=== PATIENT | male | born 1955 | race Two or more races ===

== ENCOUNTER → 2018-01-22 06:21 | Outpatient (CLI) | payer OTHER | END | disposition home or self-care (01) | LOC: LAB 06:21 | DX: I10 Essential (primary) hypertension (principal); E11.9 Type 2 diabetes mellitus without complications; E03.9 Hypothyroidism, unspecified; E78.2 Mixed hyperlipidemia ==

== ENCOUNTER 2018-01-22 07:41 | Outpatient (CLI) | payer OTHER | END 2018-01-22 07:56 | disposition home or self-care (01) | LOC: RAD 07:41 | DX: R10.9 Unspecified abdominal pain (principal); J44.9 Chronic obstructive pulmonary disease, unspecified; M12.9 Arthropathy, unspecified; M46.48 Discitis, unspecified, sacral and sacrococcygeal region; M19.90 Unspecified osteoarthritis, unspecified site ==

== ENCOUNTER 2018-07-21 07:09 | Outpatient (CLI) | payer OTHER | END 2018-07-21 07:23 | disposition home or self-care (01) | LOC: LAB 07:09 | DX: I10 Essential (primary) hypertension (principal); E11.9 Type 2 diabetes mellitus without complications; E03.8 Other specified hypothyroidism; E78.2 Mixed hyperlipidemia ==

== ENCOUNTER 2018-10-15 10:06 | Emergency (ER) | payer OTHER ==
[~2018-10-15] VITALS: Ht 170.2 cm; Wt 90.7 kg
[2018-10-15] MEDS ORDERED: COZAAR50 MG PO (10:45)
[2018-10-15] MEDS ORDERED: ASPIRIN81 MG PO (10:45)
[2018-10-15] MEDS ORDERED: PROTONIX40 MG PO (13:02)
== END 2018-10-15 14:45 | disposition home or self-care (01) ==
LOC: ER 10:06
DX: K29.70 Gastritis, unspecified, without bleeding (principal)

== ENCOUNTER → 2018-11-04 | Outpatient (CLI) | payer OTHER ==
[~2018-11-04] MED LIST: ASPIRIN81 MG PO; COZAAR50 MG PO; PROTONIX40 MG PO
== END | disposition home or self-care (01) ==
LOC: LAB 08:20
DX: I10 Essential (primary) hypertension (principal); E11.9 Type 2 diabetes mellitus without complications; E03.8 Other specified hypothyroidism; N40.0 Benign prostatic hyperplasia without lower urinary tract symptoms; M81.0 Age-related osteoporosis without current pathological fracture; E78.2 Mixed hyperlipidemia

== ENCOUNTER 2018-11-17 16:12 | Outpatient (CLI) | payer OTHER | END 2018-11-17 16:31 | disposition home or self-care (01) | LOC: LAB 16:12 | DX: B18.2 Chronic viral hepatitis C (principal) ==

== ENCOUNTER 2018-11-19 07:13 | Outpatient (CLI) | payer OTHER | END 2018-11-19 07:28 | disposition home or self-care (01) | LOC: SONOGRAMA 07:13 → EDBD 08:15 → MAMO-SONO 08:15 | DX: R10.9 Unspecified abdominal pain (principal) ==

== ENCOUNTER 2019-01-13 12:09 | Outpatient (CLI) | payer OTHER | END 2019-01-13 15:30 | disposition home or self-care (01) | LOC: LAB 12:09 | DX: B18.8 Other chronic viral hepatitis (principal) ==

== ENCOUNTER 2019-02-02 08:06 | Outpatient (CLI) | payer OTHER | END 2019-02-02 15:00 | disposition home or self-care (01) | LOC: LAB 08:06 | DX: E03.8 Other specified hypothyroidism (principal); E11.9 Type 2 diabetes mellitus without complications; E78.2 Mixed hyperlipidemia; I10 Essential (primary) hypertension ==

== ENCOUNTER 2019-05-04 08:34 | Outpatient (CLI) | payer OTHER | END 2019-05-04 08:40 | disposition home or self-care (01) | LOC: LAB 08:34 | DX: E03.8 Other specified hypothyroidism (principal); I10 Essential (primary) hypertension; E11.9 Type 2 diabetes mellitus without complications; E78.2 Mixed hyperlipidemia ==

== ENCOUNTER 2019-07-13 06:48 | Outpatient (CLI) | payer OTHER | END 2019-07-13 07:26 | disposition home or self-care (01) | LOC: LAB 06:48 | DX: R10.13 Epigastric pain (principal) ==

== ENCOUNTER 2019-08-03 07:25 | Outpatient (CLI) | payer OTHER | END 2019-08-03 07:47 | disposition home or self-care (01) | LOC: LAB 07:25 | DX: B18.2 Chronic viral hepatitis C (principal) ==

== ENCOUNTER 2019-08-31 07:33 | Outpatient (CLI) | payer OTHER | END 2019-08-31 15:00 | disposition home or self-care (01) | LOC: LAB 07:33 | DX: E03.8 Other specified hypothyroidism (principal); E11.9 Type 2 diabetes mellitus without complications; I10 Essential (primary) hypertension; E78.2 Mixed hyperlipidemia; B18.2 Chronic viral hepatitis C ==

== ENCOUNTER 2019-10-05 07:15 | Outpatient (CLI) | payer OTHER | END 2019-10-05 07:20 | disposition home or self-care (01) | LOC: LAB 07:15 | DX: B18.2 Chronic viral hepatitis C (principal) ==

== ENCOUNTER 2019-12-01 14:20 | Emergency (ER) | payer OTHER ==
[~2019-12-01] VITALS: Ht 167.6 cm; Wt 97.5 kg
[2019-12-01] MEDS ORDERED: PEPCID AC20 MG PO (14:32)
[2019-12-01] MEDS ORDERED: DICY20TA (14:32)
== END 2019-12-02 06:42 | disposition home or self-care (01) ==
LOC: ER 14:20
DX: K29.70 Gastritis, unspecified, without bleeding (principal); R10.13 Epigastric pain

== ENCOUNTER → 2020-01-20 08:07 | Outpatient (CLI) | payer OTHER ==
[~2020-01-20 08:07] MED LIST changes: +DICY20TA; +PEPCID AC20 MG PO
== END | disposition home or self-care (01) ==
LOC: LAB 08:07
DX: I10 Essential (primary) hypertension (principal); E11.9 Type 2 diabetes mellitus without complications; E03.8 Other specified hypothyroidism; E78.2 Mixed hyperlipidemia

== ENCOUNTER 2020-06-01 07:54 | Emergency (ER) | payer OTHER ==
[~2020-06-01] VITALS: Ht 167.6 cm; Wt 95.3 kg
== END 2020-06-01 15:43 | disposition home or self-care (01) ==
LOC: ER 07:54
DX: G45.9 Transient cerebral ischemic attack, unspecified (principal); R51 Headache; Z03.818 Encounter for observation for suspected exposure to other biological agents ruled out

== ENCOUNTER 2020-06-03 07:46 | Outpatient (CLI) | payer OTHER | END 2020-06-03 08:50 | disposition home or self-care (01) | LOC: LAB 07:46 | PROVIDERS: ATTEND Internal Medicine Cardiovascular Disease | DX: I10 Essential (primary) hypertension (principal); E11.9 Type 2 diabetes mellitus without complications; E03.8 Other specified hypothyroidism; E78.2 Mixed hyperlipidemia ==

== ENCOUNTER 2020-06-04 13:18 | Emergency (ER) | payer OTHER ==
[~2020-06-04] VITALS: Ht 170.2 cm; Wt 90.7 kg
== END 2020-06-04 18:32 | disposition home or self-care (01) ==
LOC: ER 13:18
DX: G44.89 Other headache syndrome (principal); Z03.818 Encounter for observation for suspected exposure to other biological agents ruled out

== ENCOUNTER 2020-06-07 10:25 | Emergency (ER) | payer OTHER ==
[~2020-06-07] VITALS: Ht 170.2 cm; Wt 90.7 kg
== END 2020-06-07 17:56 | disposition home or self-care (01) ==
LOC: ER 10:25
DX: B34.9 Viral infection, unspecified (principal); Z03.818 Encounter for observation for suspected exposure to other biological agents ruled out; R53.81 Other malaise

== ENCOUNTER 2020-06-09 08:56 | Outpatient (CLI) | payer OTHER | END 2020-06-09 09:08 | disposition home or self-care (01) | LOC: LAB 08:56 | PROVIDERS: ATTEND Radiology Diagnostic Radiology | DX: N20.0 Calculus of kidney (principal) ==

== ENCOUNTER 2020-06-09 10:23 | Outpatient (CLI) | payer OTHER | END 2020-06-09 10:38 | disposition home or self-care (01) | LOC: MRI 10:23 | PROVIDERS: ATTEND Internal Medicine Cardiovascular Disease | DX: I63.50 Cerebral infarction due to unspecified occlusion or stenosis of unspecified cerebral artery (principal); G45.8 Other transient cerebral ischemic attacks and related syndromes | CPT/HCPCS: 70552 ==

== ENCOUNTER 2020-06-12 10:08 | Inpatient (IN) | payer OTHER ==
[~2020-06-12] VITALS: Ht 170.2 cm; Wt 90.7 kg
== END 2020-07-16 12:19 | disposition home or self-care (01) | DRG 207 ==
LOC: ER 10:08 → MEDJ 15:43 → ICU 06-16 14:28 → MEDJ 07-03 10:23 → ICU 07-03 12:54 → MEDJ 07-03 22:59
PROVIDERS: ADMIT Internal Medicine Cardiovascular Disease; ATTEND Internal Medicine Cardiovascular Disease
PROC: CB2YYZZ Tomographic (Tomo) Nuclear Medicine Imaging of Respiratory System using Other Radionuclide (ICD-10-PCS; principal; 2020-06-12)
PROC: 3E0F7SF Introduction of Other Gas into Respiratory Tract, Via Natural or Artificial Opening (ICD-10-PCS; 2020-06-12)
PROC: 8E0ZXY6 Isolation (ICD-10-PCS; 2020-06-12)
PROC: 4A033R1 Measurement of Arterial Saturation, Peripheral, Percutaneous Approach (ICD-10-PCS; 2020-06-12)
PROC: 4A12X4Z Monitoring of Cardiac Electrical Activity, External Approach (ICD-10-PCS; 2020-06-12)
PROC: 02HV33Z Insertion of Infusion Device into Superior Vena Cava, Percutaneous Approach (ICD-10-PCS; 2020-06-15)
PROC: 5A1955Z Respiratory Ventilation, Greater than 96 Consecutive Hours (ICD-10-PCS; 2020-06-16)
PROC: 0BH17EZ Insertion of Endotracheal Airway into Trachea, Via Natural or Artificial Opening (ICD-10-PCS; 2020-06-16)
DX: U07.1 COVID-19 (principal); J12.89 Other viral pneumonia; J96.01 Acute respiratory failure with hypoxia; J15.1 Pneumonia due to Pseudomonas; R78.81 Bacteremia; I10 Essential (primary) hypertension; D75.1 Secondary polycythemia; R51 Headache; K29.60 Other gastritis without bleeding; B95.7 Other staphylococcus as the cause of diseases classified elsewhere; B95.2 Enterococcus as the cause of diseases classified elsewhere

== ENCOUNTER 2020-08-26 08:37 | Outpatient (CLI) | payer OTHER | END 2020-08-26 08:49 | disposition home or self-care (01) | LOC: LAB 08:37 | PROVIDERS: ATTEND Internal Medicine Cardiovascular Disease | DX: I10 Essential (primary) hypertension (principal); E11.9 Type 2 diabetes mellitus without complications; E03.8 Other specified hypothyroidism; E78.2 Mixed hyperlipidemia ==

== ENCOUNTER 2020-12-21 06:44 | Outpatient (CLI) | payer OTHER | END 2020-12-21 06:57 | disposition home or self-care (01) | LOC: LAB 06:44 | PROVIDERS: ATTEND Internal Medicine Cardiovascular Disease | DX: I10 Essential (primary) hypertension (principal); E11.9 Type 2 diabetes mellitus without complications; E03.8 Other specified hypothyroidism; E78.2 Mixed hyperlipidemia; N40.0 Benign prostatic hyperplasia without lower urinary tract symptoms; Z12.11 Encounter for screening for malignant neoplasm of colon ==

== ENCOUNTER → 2020-12-22 07:36 | Outpatient (CLI) | payer OTHER | END | disposition home or self-care (01) | LOC: LAB 07:36 | PROVIDERS: ATTEND Internal Medicine Cardiovascular Disease | DX: E03.8 Other specified hypothyroidism (principal); I10 Essential (primary) hypertension; E11.9 Type 2 diabetes mellitus without complications; E78.2 Mixed hyperlipidemia; N40.0 Benign prostatic hyperplasia without lower urinary tract symptoms; Z12.11 Encounter for screening for malignant neoplasm of colon ==

== ENCOUNTER → 2021-04-20 08:00 | Outpatient (CLI) | payer OTHER | END | disposition home or self-care (01) | LOC: LAB 08:00 | PROVIDERS: ATTEND Internal Medicine Cardiovascular Disease | DX: E03.8 Other specified hypothyroidism (principal); I10 Essential (primary) hypertension; E11.9 Type 2 diabetes mellitus without complications; E78.2 Mixed hyperlipidemia ==

== ENCOUNTER 2021-08-21 08:03 | Outpatient (CLI) | payer OTHER | END 2021-08-21 08:40 | disposition home or self-care (01) | LOC: LAB 08:03 | PROVIDERS: ATTEND Internal Medicine Cardiovascular Disease | DX: E03.8 Other specified hypothyroidism (principal); I10 Essential (primary) hypertension; E11.9 Type 2 diabetes mellitus without complications; E78.2 Mixed hyperlipidemia ==

== ENCOUNTER 2021-12-19 07:06 | Outpatient (CLI) | payer OTHER | END 2021-12-19 07:22 | disposition home or self-care (01) | LOC: LAB 07:06 | PROVIDERS: ATTEND Internal Medicine Cardiovascular Disease | DX: I11.9 Hypertensive heart disease without heart failure (principal); E03.9 Hypothyroidism, unspecified; E78.2 Mixed hyperlipidemia; Z12.11 Encounter for screening for malignant neoplasm of colon; E55.9 Vitamin D deficiency, unspecified; N40.0 Benign prostatic hyperplasia without lower urinary tract symptoms ==

== ENCOUNTER 2022-01-16 09:45 | Outpatient (CLI) | payer OTHER | END 2022-01-16 10:05 | disposition home or self-care (01) | LOC: RAD 09:45 | PROVIDERS: ATTEND Internal Medicine Cardiovascular Disease | DX: M19.90 Unspecified osteoarthritis, unspecified site (principal); M46.48 Discitis, unspecified, sacral and sacrococcygeal region ==

== ENCOUNTER 2022-01-23 07:04 | Outpatient (CLI) | payer OTHER | END 2022-01-23 07:14 | disposition home or self-care (01) | LOC: SONOGRAMA 07:04 | PROVIDERS: ATTEND Internal Medicine Cardiovascular Disease | DX: R10.9 Unspecified abdominal pain (principal) ==

== ENCOUNTER 2022-05-04 07:11 | Outpatient (CLI) | payer OTHER ==
[~2022-05-04 07:11] MED LIST changes: +ETODOLAC400 MG PO; +NORFLEX100MG PO
== END 2022-05-04 13:02 | disposition home or self-care (01) ==
LOC: LAB 07:11
PROVIDERS: ATTEND Internal Medicine Cardiovascular Disease
DX: I10 Essential (primary) hypertension (principal); E11.9 Type 2 diabetes mellitus without complications; E03.9 Hypothyroidism, unspecified

== ENCOUNTER 2022-09-03 12:55 | Outpatient (CLI) | payer OTHER | END 2022-09-03 13:08 | disposition home or self-care (01) | LOC: MRI 12:55 | PROVIDERS: ATTEND Physical Medicine & Rehabilitation | DX: M54.51 Vertebrogenic low back pain (principal); M51.37 Other intervertebral disc degeneration, lumbosacral region | CPT/HCPCS: 72148 ==

== ENCOUNTER 2022-09-17 11:01 | Outpatient (CLI) | payer OTHER | END 2022-09-17 11:12 | disposition home or self-care (01) | LOC: RAD 11:01 | PROVIDERS: ATTEND Internal Medicine Cardiovascular Disease | DX: M12.9 Arthropathy, unspecified (principal) ==

== ENCOUNTER → 2022-09-25 07:51 | Outpatient (CLI) | payer OTHER | END | disposition home or self-care (01) | LOC: LAB 07:51 | PROVIDERS: ATTEND Internal Medicine Cardiovascular Disease | DX: I10 Essential (primary) hypertension (principal); E78.2 Mixed hyperlipidemia ==

== ENCOUNTER 2022-09-25 08:44 | Outpatient (CLI) | payer OTHER | END 2022-09-25 09:05 | disposition home or self-care (01) | LOC: SONOGRAMA 08:44 | PROVIDERS: ATTEND Internal Medicine Cardiovascular Disease | DX: M12.9 Arthropathy, unspecified (principal) ==

== ENCOUNTER → 2023-01-03 07:08 | Outpatient (CLI) | payer OTHER | END | disposition home or self-care (01) | LOC: LAB 07:08 | PROVIDERS: ATTEND Internal Medicine Cardiovascular Disease | DX: E03.9 Hypothyroidism, unspecified (principal); E11.9 Type 2 diabetes mellitus without complications; I10 Essential (primary) hypertension; E78.2 Mixed hyperlipidemia; N40.0 Benign prostatic hyperplasia without lower urinary tract symptoms; Z12.11 Encounter for screening for malignant neoplasm of colon; E55.9 Vitamin D deficiency, unspecified ==

== ENCOUNTER → 2023-01-07 07:39 | Outpatient (CLI) | payer OTHER | END | disposition home or self-care (01) | LOC: LAB 07:39 | PROVIDERS: ATTEND Internal Medicine Cardiovascular Disease | DX: I10 Essential (primary) hypertension (principal); E11.9 Type 2 diabetes mellitus without complications; E03.9 Hypothyroidism, unspecified; E78.2 Mixed hyperlipidemia; N40.0 Benign prostatic hyperplasia without lower urinary tract symptoms; Z12.11 Encounter for screening for malignant neoplasm of colon; E55.9 Vitamin D deficiency, unspecified ==

== ENCOUNTER 2023-05-24 08:42 | Outpatient (CLI) | payer OTHER | END 2023-05-24 08:50 | disposition home or self-care (01) | LOC: MRI 08:42 | PROVIDERS: ATTEND Internal Medicine Cardiovascular Disease | DX: M46.49 Discitis, unspecified, multiple sites in spine (principal) | CPT/HCPCS: 72148 ==

== ENCOUNTER 2023-06-21 07:52 | Outpatient (CLI) | payer OTHER | END 2023-06-21 07:57 | disposition home or self-care (01) | LOC: LAB 07:52 | PROVIDERS: ATTEND Internal Medicine Cardiovascular Disease | DX: I10 Essential (primary) hypertension (principal); E11.9 Type 2 diabetes mellitus without complications; E03.9 Hypothyroidism, unspecified; E78.2 Mixed hyperlipidemia; Z91.041 Radiographic dye allergy status ==

== ENCOUNTER 2023-07-10 10:55 | Outpatient (CLI) | payer OTHER | END 2023-07-10 10:56 | disposition home or self-care (01) | LOC: LAB 10:55 | PROVIDERS: ATTEND Internal Medicine Cardiovascular Disease | DX: E11.9 Type 2 diabetes mellitus without complications (principal); N40.0 Benign prostatic hyperplasia without lower urinary tract symptoms; Z12.11 Encounter for screening for malignant neoplasm of colon; Z91.041 Radiographic dye allergy status ==

== ENCOUNTER → 2023-07-11 11:22 | Outpatient (CLI) | payer OTHER | END | disposition home or self-care (01) | LOC: LAB 11:22 | PROVIDERS: ATTEND Internal Medicine Cardiovascular Disease | DX: N40.1 Benign prostatic hyperplasia with lower urinary tract symptoms (principal); E11.9 Type 2 diabetes mellitus without complications; Z12.11 Encounter for screening for malignant neoplasm of colon ==

== ENCOUNTER → 2023-11-04 09:14 | Outpatient (CLI) | payer OTHER ==
[2023-11-04 10:02] LABS: HEMATOCRIT 45.8 % (39.0-48.0); HEMOGLOBIN 15.4 g/dL (13-16.00); MEAN CELL VOLUME 82.5 fL (80.0-100.00); MEAN CORPUSCULAR HEMOGLOBIN 27.8 pg (27.00-32.0); MEAN CORPUSCULAR HGB CONC 33.7 g/dl (32.0-36.0); PLATELET COUNT 155 K/uL (150-450); RED BLOOD COUNT 5.56 M/uL (4.00-6.00); RED CELL DISTRIBUTION WIDTH 14.7 % (11.5-14.5)
[2023-11-04 10:46] LABS: BILIRUBIN TOTAL 0.66 mg/dL (0.3-1.2); CALCIUM 8.8 mg/dL (8.5-10.1); CHOL HDL RATIO 4.7 (0-5.0); CREATININE SERUM 1.35 mg/dL (0.70-1.30); GFR 52.4; GLOBULINA 3.4 G/DL (2.4-3.5); POTASSIUM 4.51 mEq/L (3.5-5.1); T4 TOTAL 7.8 UG/DL (4.5-12.1); TOTAL PROTEIN 7.4 gm/dL (6.4-8.2); TSH 1.15 uIU/mL (0.358-3.74)
[2023-11-04 11:42] LABS: T3 TOTAL 1.14 ng/ml (0.846-2.02); VITAMIN D3 25 HYDROXY 37.09 ng/ml (30-120)
== END | disposition home or self-care (01) ==
LOC: LAB 09:14
PROVIDERS: ATTEND Internal Medicine Cardiovascular Disease
DX: I10 Essential (primary) hypertension (principal); E78.2 Mixed hyperlipidemia; E03.9 Hypothyroidism, unspecified; E55.9 Vitamin D deficiency, unspecified; E11.9 Type 2 diabetes mellitus without complications

== ENCOUNTER 2024-06-16 07:32 | Outpatient (CLI) | payer OTHER ==
[~2024-06-16 07:32] MED LIST changes: +ZESTRIL2.5 MG
[2024-06-16 08:16] LABS: HEMATOCRIT 42.7 % (39.0-48.0); HEMOGLOBIN 14.5 g/dL (13-16.00); MEAN CELL VOLUME 80.2 fL (80.0-100.00); MEAN CORPUSCULAR HEMOGLOBIN 27.3 pg (27.00-32.0); MEAN CORPUSCULAR HGB CONC 34.1 g/dl (32.0-36.0); PLATELET COUNT 165 K/uL (150-450); RED BLOOD COUNT 5.32 M/uL (4.00-6.00); RED CELL DISTRIBUTION WIDTH 14.2 % (11.5-14.5)
[2024-06-16 08:20] LABS: PH,URINE 5.5 (5.0-8.0); URINE APPEARANCE Clear; URINE BILIRRUBIN Negative (NEGATIVE); URINE BLOOD Negative; URINE COLOR Yellow; URINE GLUCOSE Negative (NEGATIVE); URINE KETONE Negative (NEGATIVE); URINE LEUKOCYTE Negative; URINE NITRATE Negative; URINE PROTEIN Negative (NEGATIVE); URINE UROBILINOGEN 0.2 E.U./dl
[2024-06-16 08:24] LABS: URINE RBC 3.8 uL (0.0-20.8)
[2024-06-16 08:30] LABS: URINE BACTERIA 3.7 uL (0.0-1933); URINE CAST 0.15 uL (0.0-1.40); URINE EPITHELIAL CELLS 0.4 uL (0.0-38.8); URINE WBC 1.2 uL (0.0-23.2)
[2024-06-16 09:16] LABS: ALBUMIN 3.9 gm/dL (3.4-5.0); BILIRUBIN TOTAL 0.72 mg/dL (0.3-1.2); CALCIUM 9.1 mg/dL (8.5-10.1); CHOL HDL RATIO 4.8 (0-5.0); CREATININE SERUM 1.39 mg/dL (0.70-1.30); GFR 50.66; GLOBULINA 3.4 G/DL (2.4-3.5); POTASSIUM 4.45 mEq/L (3.5-5.1); TOTAL PROTEIN 7.3 gm/dL (6.4-8.2)
[2024-06-16 10:39] LABS: ob NEGATIVE (NEGATIVE)
== END 2024-06-16 07:37 | disposition home or self-care (01) ==
LOC: LAB 07:32
PROVIDERS: ATTEND Internal Medicine Cardiovascular Disease
DX: E03.9 Hypothyroidism, unspecified (principal); E11.9 Type 2 diabetes mellitus without complications; I10 Essential (primary) hypertension; Z12.11 Encounter for screening for malignant neoplasm of colon

== ENCOUNTER 2024-06-23 13:25 | Outpatient (CLI) | payer OTHER ==
[2024-06-23 14:34] LABS: CREATININE SERUM 1.36 mg/dL (0.70-1.30)
== END 2024-06-23 13:26 | disposition home or self-care (01) ==
LOC: LAB 13:25
PROVIDERS: ATTEND Internal Medicine Cardiovascular Disease
DX: I10 Essential (primary) hypertension (principal)

== ENCOUNTER 2024-07-27 07:30 | Outpatient (CLI) | payer OTHER | END 2024-07-27 07:33 | disposition home or self-care (01) | LOC: NUCLEAR 07:30 | PROVIDERS: ATTEND Internal Medicine | DX: I87.301 Chronic venous hypertension (idiopathic) without complications of right lower extremity (principal) ==

== ENCOUNTER 2024-09-04 07:20 | Outpatient (CLI) | payer OTHER | END 2024-09-04 07:21 | disposition home or self-care (01) | LOC: NUCLEAR 07:20 | PROVIDERS: ATTEND Internal Medicine | DX: I20.9 Angina pectoris, unspecified (principal) | CPT/HCPCS: 78453; 93017; A9500 ==

== ENCOUNTER → 2024-11-06 07:17 | Outpatient (CLI) | payer OTHER ==
[2024-11-06 07:55] LABS: HEMATOCRIT 46.6 % (39.0-48.0); HEMOGLOBIN 15.5 g/dL (13-16.00); MEAN CELL VOLUME 83.7 fL (80.0-100.00); MEAN CORPUSCULAR HEMOGLOBIN 27.8 pg (27.00-32.0); MEAN CORPUSCULAR HGB CONC 33.2 g/dl (32.0-36.0); PLATELET COUNT 172 K/uL (150-450); RED BLOOD COUNT 5.56 M/uL (4.00-6.00); RED CELL DISTRIBUTION WIDTH 14.1 % (11.5-14.5)
[2024-11-06 08:57] LABS: ALBUMIN 4.3 gm/dL (3.4-5.0); BILIRUBIN TOTAL 1.52 mg/dL (0.3-1.2); CALCIUM 9.2 mg/dL (8.5-10.1); CHOL HDL RATIO 2.7 (0-5.0); CREATININE SERUM 1.55 mg/dL (0.70-1.30); GFR 44.55; GLOBULINA 3.4 G/DL (2.4-3.5); POTASSIUM 4.5 mEq/L (3.5-5.1); PROSTATIC SPECIFIC ANTIGEN 2.84 NG/ML (0.010-4.00); T4 TOTAL 8.75 UG/DL (4.5-12.1); TOTAL PROTEIN 7.7 gm/dL (6.4-8.2); TSH 1.04 uIU/mL (0.358-3.74)
[2024-11-06 09:39] LABS: URINE APPEARANCE Clear; URINE BILIRRUBIN Negative (NEGATIVE); URINE BLOOD Negative; URINE COLOR Yellow; URINE GLUCOSE Negative (NEGATIVE); URINE KETONE Negative (NEGATIVE); URINE LEUKOCYTE Negative; URINE NITRATE Negative; URINE PROTEIN Negative (NEGATIVE); URINE UROBILINOGEN 0.2 E.U./dl
[2024-11-06 09:40] LABS: URINE BACTERIA 26.9 uL (0.0-1933); URINE EPITHELIAL CELLS 2.2 uL (0.0-38.8)
[2024-11-06 09:43] LABS: ob POSITIVE (NEGATIVE)
[2024-11-06 09:44] LABS: URINE WBC 1.7 uL (0.0-23.2)
[2024-11-06 11:30] LABS: T3 TOTAL 1.25 ng/ml (0.846-2.02); VITAMIN D3 25 HYDROXY 55.75 ng/ml (30-120)
== END | disposition home or self-care (01) ==
LOC: LAB 07:17
PROVIDERS: ATTEND Internal Medicine Cardiovascular Disease
DX: I10 Essential (primary) hypertension (principal); E11.9 Type 2 diabetes mellitus without complications; E03.9 Hypothyroidism, unspecified; E78.2 Mixed hyperlipidemia; D64.0 Hereditary sideroblastic anemia; Z12.11 Encounter for screening for malignant neoplasm of colon; N40.0 Benign prostatic hyperplasia without lower urinary tract symptoms; E55.9 Vitamin D deficiency, unspecified; M81.0 Age-related osteoporosis without current pathological fracture

== ENCOUNTER 2024-12-17 10:28 | Outpatient (CLI) | payer OTHER | END 2024-12-17 10:35 | disposition home or self-care (01) | LOC: RAD 10:28 | PROVIDERS: ATTEND Internal Medicine | DX: M54.50 Low back pain, unspecified (principal) ==

== ENCOUNTER 2025-01-25 08:08 | Outpatient (CLI) | payer OTHER ==
[2025-01-25 08:46] LABS: HEMOGLOBIN 16.2 g/dL (13-16.00); MEAN CORPUSCULAR HEMOGLOBIN 26.9 pg (27.00-32.0); MEAN CORPUSCULAR HGB CONC 32.4 g/dl (32.0-36.0); PLATELET COUNT 175 K/uL (150-450); RED BLOOD COUNT 6.02 M/uL (4.00-6.00); RED CELL DISTRIBUTION WIDTH 13.9 % (11.5-14.5)
[2025-01-25 09:47] LABS: PH,URINE 5.5 (5.0-8.0); URINE APPEARANCE Clear; URINE BILIRRUBIN Negative (NEGATIVE); URINE BLOOD Negative; URINE COLOR Yellow; URINE GLUCOSE Negative (NEGATIVE); URINE KETONE Negative (NEGATIVE); URINE LEUKOCYTE Negative; URINE NITRATE Negative; URINE PROTEIN Negative (NEGATIVE); URINE UROBILINOGEN 0.2 E.U./dl
[2025-01-25 09:49] LABS: URINE BACTERIA 4.8 uL (0.0-1933); URINE RBC 2.5 uL (0.0-20.8)
[2025-01-25 10:30] LABS: URINE EPITHELIAL CELLS 0.9 uL (0.0-38.8)
[2025-01-25 13:11] LABS: BILIRUBIN TOTAL 0.74 mg/dL (0.3-1.2); CALCIUM 9.2 mg/dL (8.5-10.1); CREATININE SERUM 1.34 mg/dL (0.70-1.30); GFR 52.7; GLOBULINA 3.6 G/DL (2.4-3.5); POTASSIUM 4.64 mEq/L (3.5-5.1); TOTAL PROTEIN 7.6 gm/dL (6.4-8.2)
== END 2025-01-25 08:09 | disposition home or self-care (01) ==
LOC: LAB 08:08
PROVIDERS: ATTEND Internal Medicine Cardiovascular Disease
DX: I10 Essential (primary) hypertension (principal); E11.9 Type 2 diabetes mellitus without complications; E03.9 Hypothyroidism, unspecified; E78.2 Mixed hyperlipidemia

== ENCOUNTER 2025-02-15 12:23 | Outpatient (CLI) | payer OTHER | END 2025-02-15 12:25 | disposition home or self-care (01) | LOC: RAD 12:23 | DX: M54.50 Low back pain, unspecified (principal) ==

== ENCOUNTER 2025-03-23 06:34 | Outpatient (CLI) | payer OTHER ==
[2025-03-23 07:15] LABS: BASO % 0.4 % (0.1-1.2); EOS # 0.16 (0.04-0.54); EOS % 2.4 % (0.7-7.0); HEMATOCRIT 44.2 % (40.1-51.0); HEMOGLOBIN 14.5 g/dL (13.7-17.5); LYMPH # 1.56 (1.18-3.74); LYMPH % 23.3 % (19.3-53.1); MEAN CORPUSCULAR HEMOGLOBIN 26.7 pg (25.6-32.2); MONO # 0.56 (0.24-0.82); MONO % 8.4 % (4.7-12.5); NEUT # 4.37 (1.56-6.13); NEUT % 65.2 % (34.0-71.1); PLATELET COUNT 188 K/uL (163-369); RED BLOOD COUNT 5.43 M/uL (4.63-6.08); RED CELL DISTRIBUTION WIDTH 13.8 % (11.6-14.4)
[2025-03-23 09:34] LABS: ob NEGATIVE (NEGATIVE)
== END 2025-03-23 06:38 | disposition home or self-care (01) ==
LOC: LAB 06:34
DX: D60.0 Chronic acquired pure red cell aplasia (principal)

== ENCOUNTER 2025-03-23 07:21 | Outpatient (CLI) | payer OTHER | END 2025-03-23 07:24 | disposition home or self-care (01) | LOC: RAD 07:21 | PROVIDERS: ATTEND Internal Medicine | DX: I11.9 Hypertensive heart disease without heart failure (principal); E78.00 Pure hypercholesterolemia, unspecified ==

== ENCOUNTER 2025-04-20 09:18 | Outpatient (CLI) | payer OTHER | END 2025-04-20 09:20 | disposition home or self-care (01) | LOC: MRI 09:18 → TOM 09:18 → MAMO-SONO 09:18 → MRI 09:20 | PROVIDERS: ATTEND Physical Medicine & Rehabilitation | DX: M48.061 Spinal stenosis, lumbar region without neurogenic claudication (principal) | CPT/HCPCS: 72148 ==

== ENCOUNTER → 2025-04-29 08:26 | Outpatient (CLI) | payer OTHER ==
[~2025-04-29 08:26] MED LIST changes: +ACID CONTROLLER20 MG; +ADULT LOW DOSE81 M1; +ATORVASTATIN CA20 MG; +FENOFIBRATE48 MG; +TAMS0.4C; +ZESTRIL40 M1
== END | disposition home or self-care (01) ==
LOC: NUCLEAR 08:26
PROVIDERS: ATTEND Physical Medicine & Rehabilitation
DX: I87.2 Venous insufficiency (chronic) (peripheral) (principal)

== ENCOUNTER 2025-05-03 07:28 | Outpatient (CLI) | payer OTHER ==
[~2025-05-03 07:28] MED LIST changes: -ACID CONTROLLER20 MG; -ADULT LOW DOSE81 M1; -ATORVASTATIN CA20 MG; -FENOFIBRATE48 MG; -TAMS0.4C; -ZESTRIL40 M1
[2025-05-03] MEDS ORDERED: FENOFIBRATE48 MG (10:01)
[2025-05-03] MEDS ORDERED: ACID CONTROLLER20 MG (10:01)
[2025-05-03] MEDS ORDERED: ATORVASTATIN CA20 MG (10:02)
[2025-05-03] MEDS ORDERED: ZESTRIL40 M1 (10:02)
[2025-05-03] MEDS ORDERED: ADULT LOW DOSE81 M1 (10:02)
[2025-05-03] MEDS ORDERED: TAMS0.4C (10:02)
== END 2025-05-03 07:30 | disposition home or self-care (01) ==
LOC: NUCLEAR 07:28
PROVIDERS: ATTEND Physical Medicine & Rehabilitation
DX: I73.9 Peripheral vascular disease, unspecified (principal)

== ENCOUNTER 2025-05-03 09:34 | Emergency (ER) | payer OTHER ==
[~2025-05-03] VITALS: Ht 170.2 cm; Wt 98.4 kg
[2025-05-03] MEDS ORDERED: FENOFIBRATE48 MG (10:01)
[2025-05-03] MEDS ORDERED: ACID CONTROLLER20 MG (10:01)
[2025-05-03] MEDS ORDERED: TAMS0.4C (10:02)
[2025-05-03] MEDS ORDERED: ZESTRIL40 M1 (10:02)
[2025-05-03] MEDS ORDERED: ADULT LOW DOSE81 M1 (10:02)
[2025-05-03] MEDS ORDERED: ATORVASTATIN CA20 MG (10:02)
[2025-05-03] MEDS ORDERED: KETOROLAC TROMETHAMINE 30 MG VIAL IV ONE (10:15)
[2025-05-03 11:12] LABS: BASO % 0.5 % (0.1-1.2); EOS # 0.13 (0.04-0.54); EOS % 1.6 % (0.7-7.0); LYMPH # 1.67 (1.18-3.74); LYMPH % 20.3 % (19.3-53.1); MEAN PLATELET VOLUME 10.10 fl (9.4-12.4); MONO # 0.72 (0.24-0.82); MONO % 8.8 % (4.7-12.5); NEUT # 5.63 (1.56-6.13); NEUT % 68.6 % (34.0-71.1); RED CELL DISTRIBUTION WIDTH 13.4 % (11.6-14.4)
[2025-05-03 11:19] LABS: ALT/SGPT 34.0 U/L (12-78); AST/SGOT 25.0 U/L (15-37); BILIRUBIN TOTAL 0.44 mg/dL (0.3-1.2); BUN CREA RATIO 15.0 (7.0-25.0); CREATININE SERUM 1.55 mg/dL (0.70-1.30); GFR 44.55; GLOBULINA 3.7 G/DL (2.4-3.5); GLUCOSE FASTING 118.0 mg/dL (65-100); OSMOLALITY SERUM 290.0 MOSM/KG (275-295)
[2025-05-03 11:45] LABS: URINE APPEARANCE Clear; URINE BILIRRUBIN Negative (NEGATIVE); URINE BLOOD NHT; URINE COLOR Yellow; URINE GLUCOSE Negative (NEGATIVE); URINE KETONE Negative (NEGATIVE); URINE LEUKOCYTE Negative; URINE NITRATE Negative; URINE PROTEIN Negative (NEGATIVE); URINE UROBILINOGEN 0.2 E.U./dl
[2025-05-03 11:49] LABS: URINE BACTERIA 7.1 uL (0.0-1933); URINE RBC 12.1 uL (0.0-20.8)
[2025-05-03 11:54] LABS: URINE CAST 0.00 uL (0.0-1.40); URINE EPITHELIAL CELLS 0.6 uL (0.0-38.8); URINE WBC 0.7 uL (0.0-23.2)
== END 2025-05-03 14:13 | disposition home or self-care (01) ==
LOC: ER 09:36
PROVIDERS: Emergency Medicine
DX: M62.830 Muscle spasm of back (principal); M51.369 Other intervertebral disc degeneration, lumbar region without mention of lumbar back pain or lower extremity pain; I10 Essential (primary) hypertension; Z88.8 Allergy status to other drugs, medicaments and biological substances
CPT/HCPCS: 36415; 70450; 72040; 93005; 96365; 99284; J1885

== ENCOUNTER 2025-05-19 07:52 | Outpatient (CLI) | payer OTHER ==
[~2025-05-19 07:52] MED LIST changes: +ACID CONTROLLER20 MG; +ADULT LOW DOSE81 M1; +ATORVASTATIN CA20 MG; +FENOFIBRATE48 MG; +TAMS0.4C; +ZESTRIL40 M1
[2025-05-19 08:32] LABS: BASO % 0.4 % (0.1-1.2); EOS # 0.25 (0.04-0.54); EOS % 3.5 % (0.7-7.0); LYMPH # 1.85 (1.18-3.74); LYMPH % 26.0 % (19.3-53.1); MEAN PLATELET VOLUME 10.40 fl (9.4-12.4); MONO # 0.57 (0.24-0.82); MONO % 8.0 % (4.7-12.5); NEUT # 4.40 (1.56-6.13); NEUT % 61.8 % (34.0-71.1); RED CELL DISTRIBUTION WIDTH 13.3 % (11.6-14.4)
[2025-05-19 09:11] LABS: URINE APPEARANCE Clear; URINE BILIRRUBIN Negative (NEGATIVE); URINE BLOOD Negative; URINE COLOR Yellow; URINE GLUCOSE Negative (NEGATIVE); URINE KETONE Negative (NEGATIVE); URINE LEUKOCYTE Negative; URINE NITRATE Negative; URINE PROTEIN Negative (NEGATIVE); URINE UROBILINOGEN 0.2 E.U./dl
[2025-05-19 09:12] LABS: URINE BACTERIA 5.9 uL (0.0-1933); URINE RBC 2.6 uL (0.0-20.8)
[2025-05-19 09:18] LABS: URINE CAST 0.00 uL (0.0-1.40); URINE EPITHELIAL CELLS 1.2 uL (0.0-38.8); URINE WBC 1.0 uL (0.0-23.2)
[2025-05-19 09:45] LABS: BUN CREA RATIO 16.0 (7.0-25.0); CHOL HDL RATIO 3.3 (0-5.0); CREATININE SERUM 1.6 mg/dL (0.70-1.30); GFR 42.95; GLUCOSE FASTING 100.0 mg/dL (65-100); HDL 45.0 mg/dl (40-60); LDL 82.0 mg/dl (0-130); OSMOLALITY SERUM 286.0 MOSM/KG (275-295); VLDL 23.0 (0-39)
== END 2025-05-19 07:54 | disposition home or self-care (01) ==
LOC: LAB 07:52
PROVIDERS: ATTEND Internal Medicine Cardiovascular Disease
DX: I10 Essential (primary) hypertension (principal); E03.9 Hypothyroidism, unspecified; E78.2 Mixed hyperlipidemia; N39.0 Urinary tract infection, site not specified; R73.03 Prediabetes

== ENCOUNTER 2025-08-02 08:25 | Outpatient (CLI) | payer OTHER ==
[2025-08-02 10:03] LABS: BASO % 0.3 % (0.1-1.2); EOS # 0.22 (0.04-0.54); EOS % 3.4 % (0.7-7.0); LYMPH # 1.46 (1.18-3.74); LYMPH % 22.3 % (19.3-53.1); MEAN PLATELET VOLUME 10.00 fl (9.4-12.4); MONO # 0.48 (0.24-0.82); MONO % 7.3 % (4.7-12.5); NEUT # 4.36 (1.56-6.13); NEUT % 66.5 % (34.0-71.1); RED CELL DISTRIBUTION WIDTH 12.7 % (11.6-14.4)
[2025-08-02 10:24] LABS: URINE APPEARANCE Clear; URINE BILIRRUBIN Negative (NEGATIVE); URINE BLOOD Negative; URINE COLOR Yellow; URINE GLUCOSE Negative (NEGATIVE); URINE KETONE Negative (NEGATIVE); URINE LEUKOCYTE Negative; URINE NITRATE Negative; URINE PROTEIN Negative (NEGATIVE); URINE UROBILINOGEN 0.2 E.U./dl
[2025-08-02 10:34] LABS: URINE RBC 4.5 uL (0.0-20.8)
[2025-08-02 10:42] LABS: URINE BACTERIA 3.6 uL (0.0-1933); URINE CAST 0.00 uL (0.0-1.40); URINE EPITHELIAL CELLS 0.3 uL (0.0-38.8); URINE WBC 0.3 uL (0.0-23.2)
[2025-08-02 10:55] LABS: BUN CREA RATIO 19.0 (7.0-25.0); CHOL HDL RATIO 2.8 (0-5.0); CREATININE SERUM 1.45 mg/dL (0.70-1.30); GFR 48.11; GLUCOSE FASTING 105.0 mg/dL (65-100); HDL 49.0 mg/dl (40-60); LDL 63.0 mg/dl (0-130); OSMOLALITY SERUM 285.0 MOSM/KG (275-295); T4 TOTAL 8.57 UG/DL (4.5-12.1); TSH 1.12 uIU/mL (0.358-3.74); VLDL 24.0 (0-39)
== END 2025-08-02 08:28 | disposition home or self-care (01) ==
LOC: LAB 08:25
PROVIDERS: ATTEND Internal Medicine Cardiovascular Disease
DX: E03.9 Hypothyroidism, unspecified (principal); E78.2 Mixed hyperlipidemia; I10 Essential (primary) hypertension; R73.03 Prediabetes

== ENCOUNTER 2025-10-12 11:39 | Emergency (ER) | payer OTHER ==
[~2025-10-12] VITALS: Ht 167.6 cm; Wt 98.4 kg
[2025-10-12] MEDS ORDERED: KETOROLAC TROMETHAMINE 60 MG VIAL IM ONE ×2 (13:30→13:44)
[2025-10-12] MEDS ORDERED: ORPHENADRINE CITRATE 30 MG/ML AMPUL IM ONE (13:30)
[2025-10-12] MEDS ORDERED: ORPHENADRINE CITRATE 30 MG/ML AMPUL ONE (13:44)
[2025-10-12] MEDS ORDERED: NORFLEX100MG PO (14:12)
== END 2025-10-12 14:18 | disposition home or self-care (01) ==
LOC: ER 11:40
DX: M62.830 Muscle spasm of back (principal); M54.59 Other low back pain; I10 Essential (primary) hypertension; Z91.041 Radiographic dye allergy status
CPT/HCPCS: 72100; 96372; 99283; J1885; J2360